=== PATIENT | female | born 1995 ===

== ENCOUNTER 2017-02-16 10:17 | Emergency (ER) | payer OTHER ==
[2017-02-16 10:33] VITALS: BP 136/92; PULSE 92; RESP 18; TEMP 98; O2SAT 99
--- NOTE | 2017-02-16 10:52 | ED PDOC ---
HPI: CCC, URI, Sore Throat Time Seen by Provider: 02/16/17 10:24 Chief Complaint (Nursing): Chest Pain History Per: Patient Onset/Duration Of Symptoms: Days (5) Current Symptoms Are (Timing): Intermittent Episodes Associated Symptoms: Fever, Cough, Sputum Severity: Mild Additional Complaint(s): Cough congestion productive green sputum assoc with fever and chest pain when coughing. No SOB. Also c/o urinary frequency assoc with suprapubic LLQ pain x 5 days. No NVD.No back pain Past Medical History Vital Signs: Last Vital Signs Temp 98.0 F 02/16/17 10:30 Pulse 92 H 02/16/17 10:30 Resp 18 02/16/17 10:30 BP 136/92 H 02/16/17 10:30 Pulse Ox 99 02/16/17 10:52 - Medical History PMH: No Chronic Diseases - Family History Family History: States: Unknown Family Hx - Home Medications Home Medications: Ambulatory Orders Medication Instructions Recorded Amoxicillin/Potassium Clav 1 tab PO TID #30 tab 02/16/17 [Augmentin 500 mg-125 mg] Naproxen [Naprosyn] 500 mg PO Q12H #20 tab 02/16/17 - Allergies Allergies/Adverse Reactions: Allergies Allergy/AdvReac Type Severity Reaction Status Date / Time No Known Allergies Allergy Verified 02/16/17 10:29 Review of Systems Constitutional: Positive for: Fever Respiratory: Positive for: Cough, Pleuritic Pain, Sputum Gastrointestinal: Positive for: Abdominal Pain Genitourinary Female: Positive for: Frequency Physical Exam - Physical Exam Appears: Positive for: Non-toxic, No Acute Distress Skin: Positive for: Normal Color, Warm, DRY Cardiovascular/Chest: Positive for: Regular Rate, Rhythm Respiratory: Positive for: Rhonchi. Negative for: Wheezing, Respiratory Distress Gastrointestinal/Abdominal: Positive for: Bowel Sounds, Soft, Tenderness ( Suprapubic/LLQ) Back: Negative for: L CVA Tenderness, R CVA Tenderness Extremity: Positive for: Normal ROM - ECG O2 Sat by Pulse Oximetry: 99 Disposition - Clinical Impression Clinical Impression: UTI (urinary tract infection), URI (upper respiratory infection) - Patient ED Disposition Is Patient to be Admitted: No - Disposition Referrals: [facility] [Outside] Disposition: Routine/Home Disposition Time: 12:25 Condition: FAIR Prescriptions: Amoxicillin/Potassium Clav [Augmentin 500 mg-125 mg] 1 tab PO TID #30 tab Naproxen [Naprosyn] 500 mg PO Q12H #20 tab Instructions: Urinary Tract Infection in Women (ED), Upper Respiratory Infection (ED) Forms: [employer] (Greek)
--- NOTE | 2017-02-16 12:10 | RAD ---
HISTORY: Cough. COMPARISON: No prior. TECHNIQUE: Chest PA and lateral FINDINGS: LUNGS: No active pulmonary disease. PLEURA: No significant pleural effusion identified. No pneumothorax apparent. CARDIOVASCULAR: Normal. OSSEOUS STRUCTURES: No significant abnormalities. VISUALIZED UPPER ABDOMEN: Normal. OTHER FINDINGS: None. IMPRESSION: No active disease.
== END 2017-02-16 12:46 | disposition home or self-care (01) ==
LOC: H.ER 10:17
DX: N39.0 Urinary tract infection, site not specified (principal); J06.9 Acute upper respiratory infection, unspecified